=== PATIENT | male | born 1995 | race Caucasian/White ===

== ENCOUNTER 2021-02-01 13:45 | Emergency (ER) | payer MEDICAID ==
[~2021-02-01] VITALS: Ht 172.7 cm; Wt 96.0 kg
[2021-02-01 13:50] VITALS: BP 140/88
== END 2021-02-01 16:06 | disposition home or self-care (01) ==
LOC: ER 13:56
DX: K43.9 Ventral hernia without obstruction or gangrene (principal)
CPT/HCPCS: 99281